=== PATIENT | female | born 1955 | race Caucasian/White ===

== ENCOUNTER → 2020-12-16 11:25 | Outpatient (CLI) | payer MEDICARE, SELFPAY ==
--- NOTE | ~2020-12-16 | XR_ITS ---
EXAMINATION: XR foot LT min 3V DATE: 12/16/2020 11:44 INDICATION: Left foot pain. TECHNIQUE: 4 views of left foot were obtained. COMPARISON: None. FINDINGS: Bone alignment is normal. No fracture. There is mild osteoarthritis of first metatarsophala ngeal joint and some the interphalangeal joints and midfoot joints. There is an enthesophyte at plant ar aspect of calcaneal tuberosity. IMPRESSION: 1. Mild polyarticular osteoarthritis. Reviewed, dictated and finalized at location A.
== END ==
PROVIDERS: PCP Family Medicine; Visit Provider Family Medicine
DX: M19.072 Primary osteoarthritis, left ankle and foot (principal)
CPT/HCPCS: 73630

== ENCOUNTER → 2021-04-24 11:28 | Outpatient (CLI) | payer MEDICARE, SELFPAY ==
--- NOTE | ~2021-04-24 | MM_ITS ---
EXAMINATION: MM screening rohan BI w priti HISTORY: Screening mammogram TECHNIQUE: Craniocaudal and mediolateral oblique 3-D tomosynthesis images were obtained and synthetic 2-D images were generated. CAD analysis was submitted and interpreted. COMPARISON: 07/01/2019, 04/08/2018, 08/01/2016 bilateral screening mammogram BREAST PARENCHYMAL COMPOSITION: The breasts are almost entirely fatty. FINDINGS: There is no evidence of suspicious mass, calcification, or architectural distortion to sugg est malignancy in either breast. There has been no suspicious interval change. There are scattered bilateral circumscribed low-density benign-appearing lesions, the largest a 4.8 x 8 mm circumscribed density in the lateral mid left breast. These are likely benign lymph nodes. IMPRESSION: 1. No mammographic evidence of malignancy. 2. Recommend routine screening mammography in one year. BI-RADS Category 2: Benign finding(s). Reviewed, dictated and finalized at location A. MOLDER
== END ==
PROVIDERS: PCP Family Medicine; Visit Provider Family Medicine
DX: Z12.31 Encounter for screening mammogram for malignant neoplasm of breast (principal)
CPT/HCPCS: 77063; 77067

== ENCOUNTER → 2022-03-02 10:58 | Outpatient (CLI) | payer MEDICARE, SELFPAY ==
--- NOTE | ~2022-03-02 | XR_ITS ---
EXAMINATION: XR hip RT min 3V w AP pelvis INDICATION: Right hip pain TECHNIQUE: AP view the pelvis and three views of the right hip are obtained. COMPARISON: None available FINDINGS: Bone alignment is normal. There is no fracture. There is mild osteoarthritis of the hips. P hleboliths are noted in the pelvis. IMPRESSION: 1. Mild osteoarthritis without acute osseous abnormality. Reviewed, dictated and finalized at location B.
== END ==
PROVIDERS: PCP Emergency Medicine; Visit Provider Emergency Medicine
DX: M16.11 Unilateral primary osteoarthritis, right hip (principal)
CPT/HCPCS: 73502

== ENCOUNTER 2022-07-19 10:36 | Outpatient (CLI) | payer MEDICARE, SELFPAY ==
[2022-07-19 19:36] LABS: Kit Draw Collected
== END 2022-07-19 10:37 | disposition home or self-care (01) ==
LOC: ANHGOSHLAB 10:38
PROVIDERS: PCP Family Medicine; Visit Provider Family Medicine
DX: M25.50 Pain in unspecified joint (principal); E66.9 Obesity, unspecified; E78.2 Mixed hyperlipidemia; I10 Essential (primary) hypertension
CPT/HCPCS: 36415

== ENCOUNTER → 2022-07-19 10:57 | Outpatient (CLI) | payer MEDICARE, SELFPAY ==
--- NOTE | ~2022-07-19 | XR_ITS ---
Bilateral Hands Technique: Bilateral PA, oblique, and lateral views, and ball-catcher's view were obtained. Clinical History: Joint pain Findings: No acute fracture or dislocation is seen. Osseous alignment is anatomic. Mild degenerative change of the right first interphalangeal joint and right second DIP joint is present. There is mild degenerative change of the interphalangeal joint of the left thumb, as well as of the left second and third DIP joints. Soft tissues are unremarkable. Impression: Mild degenerative changes, as detailed above. Reviewed, dictated and finalized at location M. LER HELPER Impression: Mild degenerative changes, as detailed above.
== END ==
PROVIDERS: PCP Family Medicine; Visit Provider Family Medicine
DX: M25.50 Pain in unspecified joint (principal)
CPT/HCPCS: 73130

== ENCOUNTER → 2022-07-20 16:00 | Outpatient (CLI) | payer MEDICARE, SELFPAY ==
--- NOTE | ~2022-07-20 | XR_ITS ---
EXAMINATION: XR shoulder LT min 2V DATE: 07/20/2022 16:12 INDICATION: Left shoulder injury and pain with raising the arm post injury 2 years prior TECHNIQUE: AP internally and externally rotated, AP oblique externally rotated and transscapular Y vi ews of the left shoulder were obtained. COMPARISON: None FINDINGS: Mild cervicothoracic levocurvature with moderate to severe cervical and and mild to moderate thoracic spondylosis. Normal alignment at the left shoulder. No fracture. Mild bilateral left glenohumeral a nd acromioclavicular osteoarthritis. Tiny focus of calcific density along the posterior facet of the greater tuberosity consistent with minimal rotator cuff calcific tendinitis involving of the teres mi nor posterior most infraspinatus tendon. Visualized portions of the left lung are clear. Suture line at the right apex. IMPRESSION: 1. Mild left glenohumeral and acromioclavicular osteoarthritis. 2. Minimal posterior rotator cuff calcific tendinitis. Reviewed, dictated and finalized at location A. RVISOR CORE DRILLING
== END ==
PROVIDERS: PCP Family Medicine; Visit Provider Physician Assistant
DX: M19.012 Primary osteoarthritis, left shoulder (principal)
CPT/HCPCS: 73030

== ENCOUNTER → 2022-07-31 13:19 | Outpatient (CLI) | payer MEDICARE, SELFPAY ==
--- NOTE | ~2022-07-31 | MM_ITS ---
EXAMINATION: MM screening rohan BI w priti HISTORY: Screening TECHNIQUE: Craniocaudal and mediolateral oblique 3-D tomosynthesis images were obtained and synthetic 2-D images were generated. CAD analysis was submitted and interpreted. COMPARISON: Comparison to multiple prior studies sequentially, with oldest reviewed study dated 04/17. BREAST PARENCHYMAL COMPOSITION: Breast composed of scattered areas of fibroglandular density FINDINGS: There is no evidence of suspicious mass, calcification, or architectural distortion to sugg est malignancy in either breast. There has been no suspicious interval change. IMPRESSION: 1. No mammographic evidence of malignancy. 2. Recommend routine screening mammography in one year. BI-RADS Category 1: Negative Reviewed, dictated and finalized at location A. ERN WHEEL MAKER
== END ==
PROVIDERS: PCP Emergency Medicine; Visit Provider Emergency Medicine
DX: Z12.31 Encounter for screening mammogram for malignant neoplasm of breast (principal)
CPT/HCPCS: 77063; 77067

== ENCOUNTER 2022-09-21 09:46 | Outpatient (CLI) | payer MEDICARE, SELFPAY ==
--- NOTE | ~2022-09-21 | MR_ITS ---
EXAMINATION: MR brain/brain stem wo/w con DATE: 09/21/2022 10:37 INDICATION: Dizziness. TECHNIQUE: Magnetic resonance imaging (MRI) of the brain and brainstem was performed without and with 17 mL MultiHance intravenous contrast. COMPARISON: None. FINDINGS: There is a small acute infarct in right cerebellum. There are scattered areas of nonspecifi c increased T2-weighted signal intensity in the cerebral white matter and ana lilia. There is no intracran ial hemorrhage or abnormal mass lesion. The ventricles are normal in size. There is mucosal thickenin g in the paranasal sinuses. The orbits are normal. The mastoid air cells are normal. IMPRESSION: 1. 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 2. Moderate nonspecific cerebral white matter disease and pontine disease, which likely represents ch ronic small vessel ischemic disease. Reviewed, dictated and finalized at location A. IMPRESSION: 1. 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 2. Moderate nonspecific cerebral white matter disease and pontine disease, whic h likely represents chronic small vessel ischemic disease.
== END 2022-09-21 09:47 | disposition home or self-care (01) ==
PROVIDERS: PCP Family Medicine; Visit Provider Nurse Practitioner Family
DX: H53.9 Unspecified visual disturbance (principal); R42 Dizziness and giddiness; R93.0 Abnormal findings on diagnostic imaging of skull and head, not elsewhere classified
CPT/HCPCS: 70553; A9577

== ENCOUNTER 2022-09-25 09:00 | Outpatient (RCR) | payer MEDICARE, SELFPAY ==
--- NOTE | 2022-08-14 09:00 | PTOPEVAL1 ---
Assessment and note entered by Lotus Escalante, PT, DPT Evaluation Information Assessment Status Evaluation Diagnosis L shoulder Onset 2 years Subjective Information Pt states 2 years ago she was reaching for something in her closet when she flet her shoulder pop. Soon after this she states her muscle got big and swollen , it has slowly decreased since then. She states she is unsure about therapy cause she does not like to/want to move her shoulder much out of fear of making it worse. She states any time she lifts something it is sore for weeks afterwards. She states she a long time she did not have any pain, about 6 months ago she was lifting a case of water and aggravated it again. She reports 0/10 at rest, and 4/10 with movement, but can make it a 10/10. Reported Pain Level Pain Score 0: Self Report Assessment PT Clinical Summary Enriqueta Brambila presents to therapy today for her initial evaluation with a diagnosis of L shoulder tendinitis. Today she demonstrates active ROM that is equal bilaterally in her shoulders and elbows. She reports mild pain in her biceps muscle belly with both active ROM and resisted motions. She demonstrates decreased L shoulder strength compared to her uninvolved side. Skilled physical therapy services are indicated to address the deficits noted above, to manage pain, and to improve functional mobility. Plan of Care Interventions Electrical Stimulation,Hot Pack/Cold Pack,Manual Therapy,Neuro Re-education,Patient/Caregiver Educati,Therapeutic Activities,Therapeutic Exercise PT Services Indicated Yes Treatment Frequency and 1x/wk for 6 wks Duration These treatments will address the objective and functional deficits as defined above. The patient will be advanced safely and appropriately in order for the patient to progress towards his/her prior level of function. Additional exercises will be introduced and as well as a comprehensive home exercise program upon discharge, if needed, ?to ensure carryover of functional gains achieved in the clinic. This treatment plan has been reviewed and agreement upon by the patient.
--- NOTE | 2022-09-25 09:39 | PTOPDC ---
Assessment and note entered by Lotus Escalante, PT, DPT Evaluation Information Assessment Status Progress Diagnosis L shoulder Onset 2 years Subjective Information Pt states overall her motion is much better, she states she only has pain when reaching over her head as high as she can. She states she will has some clicking and popping in the shoulder but it is not painful. She states she still gets pain when trying to lift something heavy, like a case of water. Pt reports 95% improvement in overall symptoms. Reported Pain Level Pain Score 0: Self Report Assessment PT Clinical Summary Enriqueta presents to therapy today for her progress report following 6 visits of skilled therapy to treat her L shoulder pain. Today she reports 95% improvement in her overall pain. She demonstrates improved scapulohumeral rhythm today. She has met a majority of her goals and has progressed well towards the others. She will be discharged at this time to continue her HEP upon discharge. Plan of Care PT Services Indicated No
== END 2022-09-25 11:18 | disposition home or self-care (01) ==
LOC: ANHGOSHPT 09:00
PROVIDERS: PCP Emergency Medicine; Visit Provider Family Medicine
DX: M75.22 Bicipital tendinitis, left shoulder (principal)
CPT/HCPCS: 97110; 97112; 97140; 97161; 97530

== ENCOUNTER 2023-03-27 08:52 | Outpatient (CLI) | payer MEDICARE, SELFPAY ==
--- NOTE | 2023-03-27 11:00 | NEURO_ITS ---
Impression: # Complains of numbness of hands. # Mild Carpal Tunnel Syndrome, left more than right. # No ulnar neuropathy. # Normal needle/EMG. Nerve Conduction Studies Anti Sensory Summary Table Stim Site NR Peak (ms) P-T Amp (?V) Site1 Site2 Delta-P (ms) Dist (cm) Yaniv (m/s) Left Median Anti Sensory (2-3nd Digit) Wrist 4.2 38.2 Wrist 2-3nd Digit 4.2 14.0 33 Wrist 4.3 32.7 Wrist 2-3nd Digit 4.2 14.0 33 Right Median Anti Sensory (2-3nd Digit) Wrist 3.1 22.7 Wrist 2-3nd Digit 3.1 14.0 45 Wrist 3.2 40.3 Wrist 2-3nd Digit 3.1 14.0 45 Left Radial Anti Sensory (Base 1st Digit) Wrist 2.0 28.1 Wrist Base 1st Digit 2.0 0.0 Right Radial Anti Sensory (Base 1st Digit) Wrist 2.3 24.7 Wrist Base 1st Digit 2.3 0.0 Left Ulnar Anti Sensory (5th Digit) Wrist 2.7 59.4 Wrist 5th Digit 2.7 14.0 52 Right Ulnar Anti Sensory (5th Digit) Wrist 2.8 82.7 Wrist 5th Digit 2.8 14.0 50 Motor Summary Table Stim Site NR Onset (ms) O-P Amp (mV) Site1 Site2 Delta-0 (ms) Dist (cm) Yaniv (m/s) Left Median Motor (Abd Poll Brev) Wrist 4.4 10.5 Elbow Wrist 4.5 28.0 62 Elbow 8.9 10.0 Right Median Motor (Abd Poll Brev) Wrist 4.0 4.3 Elbow Wrist 4.6 26.0 57 Elbow 8.6 2.4 Left Ulnar Motor (Abd Dig Minimi) Wrist 3.0 7.6 A Elbow Wrist 4.8 29.0 60 A Elbow 7.8 6.6 Right Ulnar Motor (Abd Dig Minimi) Wrist 2.8 8.6 A Elbow Wrist 4.7 27.0 57 A Elbow 7.5 8.3 F Wave Studies NR F-Lat (ms) L-R F-Lat (ms) Left Median (Mrkrs) (Abd Poll Brev) 26.96 1.29 Right Median (Mrkrs) (Abd Poll Brev) 25.67 1.29 Left Ulnar (Mrkrs) (Abd Dig Min) 27.04 1.23 Right Ulnar (Mrkrs) (Abd Dig Min) 25.81 1.23 EMG Side Muscle Nerve Root Ins Act Fibs Amp Dur Recrt Comment Right 1stDorInt Ulnar C8-T1 Nml Nml Nml Nml Nml Right Ext Indicis Radial (Post Int) C7-8 Nml Nml Nml Nml Nml Right Ext Digitorum Radial (Post Int) C7-8 Nml Nml Nml Nml Nml Right BrachioRad Radial C5-6 Nml Nml Nml Nml Nml Right PronatorTeres Median C6-7 Nml Nml Nml Nml Nml Right Abd Poll Brev Median C8-T1 Nml Nml Nml Nml Nml Left 1stDorInt Ulnar C8-T1 Nml Nml Nml Nml Nml Left Ext Indicis Radial (Post Int) C7-8 Nml Nml Nml Nml Nml Left Ext Digitorum Radial (Post Int) C7-8 Nml Nml Nml Nml Nml Left BrachioRad Radial C5-6 Nml Nml Nml Nml Nml Left PronatorTeres Median C6-7 Nml Nml Nml Nml Nml Left Abd Poll Brev Median C8-T1 Nml Nml Nml Nml Nml MTDD
== END 2023-03-27 08:53 | disposition home or self-care (01) ==
PROVIDERS: PCP Family Medicine; Visit Provider Family Medicine
DX: R20.0 Anesthesia of skin (principal); G56.03 Carpal tunnel syndrome, bilateral upper limbs
CPT/HCPCS: 95886; 95911

== ENCOUNTER 2023-09-11 13:26 | Outpatient (CLI) | payer MEDICARE, SELFPAY ==
--- NOTE | ~2023-09-11 | MM_ITS ---
EXAMINATION: MM screening rohan BI w priti HISTORY: Screening mammogram TECHNIQUE: Craniocaudal and mediolateral oblique 3-D tomosynthesis images were obtained and synthetic 2-D images were generated. CAD analysis was submitted and interpreted. COMPARISON: July 31, 2022, April 24, 2021 bilateral screening mammogram examinations BREAST PARENCHYMAL COMPOSITION: The breasts are almost entirely fatty. FINDINGS: There is no evidence of suspicious mass, calcification, or architectural distortion to sugg est malignancy in either breast. There has been no suspicious interval change. IMPRESSION: 1. No mammographic evidence of malignancy. 2. Recommend routine screening mammography in one year. BI-RADS Category 1: Negative Reviewed, dictated and finalized at location A.
== END 2023-09-11 13:27 | disposition home or self-care (01) ==
LOC: CHSIMG 13:29
PROVIDERS: PCP Family Medicine; Visit Provider Family Medicine
DX: Z12.31 Encounter for screening mammogram for malignant neoplasm of breast (principal)
CPT/HCPCS: 77063; 77067

== ENCOUNTER 2023-10-17 13:41 | Outpatient (CLI) | payer MEDICARE, SELFPAY ==
--- NOTE | ~2023-10-17 | CT_ITS ---
EXAMINATION:CT diagnostic chest wo con DATE: 10/17/2023 13:56 INDICATION: Right-sided pleurodynia. TECHNIQUE: Computed tomography (CT) of the chest was performed without intravenous contrast. Automate d exposure control and iterative reconstruction technique were employed. The dose-length product (DLP ) was 542.92 mGy-cm. COMPARISON: None. FINDINGS: There is mild emphysema. There is mild scarring at the lung apices. There is peripheral sep anton thickening in the lungs with a lower lung predominance. There are few nodules at the fissures mary lou suring up to 5 mm, likely benign. There is a thoracotomy defect of right sixth rib. There are staple lines in right lung upper lobe. No pleural effusion. The heart size is normal. There are coronary art paige calcifications. No pericardial effusion. There is mild thoracic spondylosis. IMPRESSION: 1. Mild emphysema and mild chronic interstitial lung disease. Reviewed, dictated and finalized at location E.
== END 2023-10-17 13:42 ==
LOC: MICIMG 13:43
PROVIDERS: PCP Nurse Practitioner Family; Visit Provider Nurse Practitioner Family
DX: R07.81 Pleurodynia (principal); J43.9 Emphysema, unspecified
CPT/HCPCS: 71250

== ENCOUNTER 2023-11-30 09:54 | Emergency (ER) | payer MEDICARE, SELFPAY ==
[2023-11-30 10:10] VITALS: BP 148/89; PULSE 64; RESP 16; TEMP 36.8; O2SAT 98
--- NOTE | 2023-11-30 10:10 | ED.URI ---
HPI - URI/Sore Throat General Chief Complaint: Upper Respiratory Infection Stated Complaint: cough Source: patient and RN notes reviewed Mode of arrival: ambulatory Limitations: no limitations History of Present Illness HPI Narrative: 68-year-old female presented for complaint of nasal congestion and fever. Onset 2 days. Temperature up to 101.5. Tested negative for COVID at the onset. Denies shortness of breath, wheezing, nausea, vomiting, or lethargy. Took Tylenol and Delsym. MD elicited complaint: cough Related Data Home Medications Medication Instructions Recorded Confirmed omeprazole 20 mg capsule,delayed 20 mg PO DAILY 10/10/23 11/30/23 release Allergies Allergy/AdvReac Type Severity Reaction Status Date / Time benzocaine Allergy Mild SWOLLEN Verified 11/30/23 10:05 LIPS Review of Systems Review of Systems: CONSTITUTIONAL: Endorses malaise, fever EYES: Denies visual changes, redness, or discharge ENT: Reports rhinorrhea, congestion, denies sinus pain, otalgia, sore throat CARDIOVASCULAR: Denies chest pain, palpitations, edema RESPIRATORY: Reports cough, post nasal drainage. Denies dyspnea GASTROINTESTINAL: Denies abdominal pain, nausea, vomiting SKIN: Denies rash or itching MUSCULOSKELETAL: Denies myalgia NEUROLOGIC: endorses headache PMFSH Past Medical History Medical History Adult BMI 33.0-33.9 kg/sq m Bilateral leg cramps BMI 34.0-34.9,adult BMI 35.0-35.9,adult Brain ischemia Chronic anxiety Collapsed lung Dizziness Does use eyeglasses [place] Hip pain, right Hypoglycemia Numbness of right hand Pap smear for cervical cancer screening (~12/23/12) Pneumothorax (~1982) Prediabetes Restless leg syndrome Shoulder pain, left Trigger finger (acquired) Trochanteric bursitis of both hips Uses contact lenses Vision changes Vision changes Surgical History Surgical History H/O eye surgery History of colonoscopy (~09/11/05) History of sinus surgery (~2017) Family History Family History Mother Family history of alcoholism Father Family history of emphysema Sibling Hyperlipidemia Other Hypertension Social History Social History Smoking packs per day: 1 Smoking cigarettes per day: 20.0 Years smoked: 20 Smoking pack-years: 20.00 Smoking status: Former smoker Tobacco type: cigarettes and e-cigarettes/vaping Second hand tobacco smoke exposure: No Alcohol intake: current Substance use: never Substance use type: does not use Lack of Transportation: No Lack of Food: Never True Current Housing: I Have Housing Concerned About Future Housing: Decline to Answer Difficulty Paying Gas/Electric Bills: Decline to Answer Currently Unemployed: Decline to Answer Education: High School Diploma/GED Difficulty w/ Childcare or Family Care: No Living arrangements: with family Occupation/Education: retired 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 TM pearly herring with dull light reflex bilaterally; no tragal tenderness. Oropharynx not erythematous without lesions or exudate, no drooling, no hoarseness, no trismus, uvula midline. No tripod positioning, muffled voice, soft palate or pharyngeal wall bulging NECK: Supple. No lymphadenopathy CHEST: Clear to auscultation, breath sounds equal. No wheezing, rhonchi, rales, or stridor. No respiratory distress, speaks in full sentences. HEART: Regular rate and rhythm. SKIN: Warm, dry, no rash. NEURO: Alert and oriented x3. Course Course Emergency Course: Patient is aware of
== END 2023-11-30 10:35 | disposition home or self-care (01) ==
PROVIDERS: Emergency Provider Nurse Practitioner Family; PCP Nurse Practitioner Family
DX: B34.9 Viral infection, unspecified (principal); Z20.822 Contact with and (suspected) exposure to COVID-19; Z87.891 Personal history of nicotine dependence; R73.03 Prediabetes; G25.81 Restless legs syndrome
CPT/HCPCS: 87426; 87804; 99213; G0463

== ENCOUNTER 2023-12-02 11:32 | Outpatient (CLI) | payer MEDICARE, SELFPAY ==
--- NOTE | ~2023-12-02 | XR_ITS ---
EXAMINATION: XR chest 2V Exam Date/Time: 12/02/2023 11:36 CDT HISTORY: R05.3 - Chronic cough Comparison: CT chest 10/17/2023. RESULT: Lines, tubes, and devices: Staple line in the right apex. Lungs and pleura: Patchy peripheral subsegmental airspace disease in the right lower lung in an area of chronic reticulation. Cardiomediastinal silhouette: Stable. Other: No acute osseous or upper abdominal finding. IMPRESSION: Focal subsegmental airspace disease in the right peripheral lower lung may represent atelectasis or i nfection. Recommend short-term radiographic follow-up to ensure resolution. Reviewed, dictated and finalized at location K. IMPRESSION: Focal subsegmental airspace disease in the right peripheral lower lung may repr esent atelectasis or infection. Recommend short-term radiographic follow-up to ensure resolution.
== END 2023-12-02 11:33 ==
LOC: MICIMG 11:35
PROVIDERS: PCP Family Medicine; Visit Provider Physician Assistant Medical
DX: R05.3 Chronic cough (principal)
CPT/HCPCS: 71046

== ENCOUNTER 2023-12-23 09:27 | Outpatient (CLI) | payer MEDICARE, SELFPAY ==
--- NOTE | ~2023-12-23 | XR_ITS ---
Clinical Indication: Abnormal findings on diagnostic imaging PA and lateral views of the chest: Comparison: 12/02/2023 Findings: Probable minimal right pleural effusion and hazy right basilar airspace disease are similar to prior exam. Left lung remains clear.. Cardiomediastinal silhouette is within normal limits. Bone s and soft tissues are unremarkable. Impression: Stable hazy right basilar airspace disease and probable minimal right pleural effusion. Reviewed, dictated and finalized at location M. Impression: Stable hazy right basilar airspace disease and probable minimal right pleural e ffusion.
== END 2023-12-23 09:28 ==
LOC: MICIMG 09:28
PROVIDERS: PCP Family Medicine; Visit Provider Physician Assistant Medical
DX: R93.89 Abnormal findings on diagnostic imaging of other specified body structures (principal)
CPT/HCPCS: 71046

== ENCOUNTER 2024-01-10 08:01 | Outpatient (CLI) | payer MEDICARE, SELFPAY ==
--- NOTE | ~2024-01-10 | CT_ITS ---
EXAMINATION: CT diagnostic chest w con DATE: 01/10/2024 08:41 INDICATION: Pneumonia TECHNIQUE: Computed tomography (CT) of the chest was performed with 75 CC Omnipaque 350 intravenous c ontrast. Automated exposure control and iterative reconstruction technique were employed. Exam dose: 386.28 mGy-cm total exam DLP. COMPARISON: 12/23/2023 2 view chest 10/17/2023 CT chest FINDINGS: Status post right thoracotomy. Radiopaque sutures are noted in the posterior right apical a millie. Normal heart size. Coronary artery calcification. There is aortic and great vessel calcification. No thoracic aortic aneurysm or dissection. No pericardial or pleural effusion. 8 x 11.6 mm mediastinal lymph node anterior to the left mainstem bronchus. There is mild right hilar lymph node prominence. Small probable granuloma, posterolateral middle lobe (series 4 image 67) Probable fissural nodes at the fissure. Prominent interlobular septal soft tissue thickening becoming is noted in the peripheral anterior and lateral middle and right lower lobes and to a lesser extent posterior peripheral right lower lobe.. Normal morphology of the adrenal glands. Pinpoint nonobstructing right renal calculus. No suspicious osteolytic or osteoblastic lesions. IMPRESSION: Prominent interlobular septal soft tissue thickening and honeycombing the anterior and l ateral aspect of the middle and right lower lobes and to a lesser extent posterior peripheral right l ower lobe Status post right thoracotomy and partial right pneumonectomy Reviewed, dictated and finalized at Location A. Reviewed, dictated and finalized at location J. IMPRESSION: Prominent interlobular septal soft tissue thickening and honeycomb ing the anterior and lateral aspect of the middle and right lower lobes and to a lesser extent posterior peripheral right lower lobe Status post right thoracotomy and partial right pneumonectomy
[2024-01-10 08:29] LABS: Estimated Glomerular Filt Rate > 60
== END 2024-01-10 08:02 | disposition home or self-care (01) ==
PROVIDERS: PCP Family Medicine; Visit Provider Physician Assistant Medical
DX: J18.9 Pneumonia, unspecified organism (principal); J43.9 Emphysema, unspecified; R05.3 Chronic cough; Z90.2 Acquired absence of lung [part of]; R93.89 Abnormal findings on diagnostic imaging of other specified body structures
CPT/HCPCS: 71260; Q9967

== ENCOUNTER 2024-05-20 13:01 | Outpatient (CLI) | payer MEDICARE, SELFPAY ==
--- NOTE | 2024-05-25 20:53 | WPDPFTINT ---
PFT Procedure Performed PFT Procedure Performed Spirometry with Pre/Post Bronchodilator Plethysmography (Lung Vol) Diffusing Cap (DLCO) Flow Vol Loop PFT Interpretation DOS: 05/20/2024 REQUESTING: Elizabeth Serra MD REASON FOR TESTING: ILD PULMONARY FUNCTION TESTS Results are reliable and reproducible. Repeatability of spirometry FEV1 maneuver pre and post bronchodilator is Grade A. Spirometry: The pre-bronchodilator FEV1 is 2.18, 115%. The pre-bronchodilator FVC is 3.13 L, 129%. The FEV1/FVC ratio is70%. After bronchodilator, the FEV1 is 2.15 L, 114%, -1%. The post-bronchodilator FVC is 3.03 L, 125%, -3%. The FEV1/FVC ratio is 71%. Lung volumes: The total lung capacity is 4.33 L, 97%, normal. The residual volume is 1.20 L, 58%. The RV/TLC is 28%, decreased. Airway resistance is increased. Diffusion: DLCO is 11.6, 57%, decreased. The DLCO/VA is 3.12, 73%, normal. Flow volume loop: The flow volume loop normal. IMPRESSION: Normal spirometry without response to bronchodilator, normal lung volumes, and mild diffusion impairment which normalizes for alveolar volume. No prior studies to compare. Elizabeth Serra MD
== END 2024-05-20 13:02 | disposition home or self-care (01) ==
LOC: ANHPFT 13:02
PROVIDERS: PCP Family Medicine; Visit Provider Internal Medicine Critical Care Medicine
DX: J84.9 Interstitial pulmonary disease, unspecified (principal)
CPT/HCPCS: 94060; 94618; 94726; 94729

== ENCOUNTER 2024-09-14 07:50 | Outpatient (CLI) | payer MEDICARE, SELFPAY ==
--- NOTE | ~2024-09-14 | MR_ITS ---
EXAMINATION: MR brain/brain stem wo con DATE: 09/14/2024 08:23 INDICATION: Demyelinating disease of central nervous system. TECHNIQUE: Magnetic resonance imaging (MRI) of the brain and brainstem was performed without intraven ous contrast. COMPARISON: Brain MRI 09/21/2022 FINDINGS: There are scattered areas of nonspecific increased T2-weighted signal intensity in the cere bral white matter. There is no intracranial hemorrhage, acute infarction, or abnormal intracranial ma ss lesion. The ventricles are normal in size. The orbits are normal. There is mucosal thickening in t he paranasal sinuses. The mastoid air cells are normal. IMPRESSION: 1. Stable moderate nonspecific cerebral white matter disease, which likely represents chronic small v essel ischemic disease. Reviewed, dictated and finalized at location A. IMPRESSION: 1. Stable moderate nonspecific cerebral white matter disease, which likely repr esents chronic small vessel ischemic disease.
== END 2024-09-14 07:51 | disposition home or self-care (01) ==
LOC: MICIMG 07:50
PROVIDERS: PCP Family Medicine; Visit Provider Family Medicine
DX: G37.9 Demyelinating disease of central nervous system, unspecified (principal); I67.82 Cerebral ischemia; R90.82 White matter disease, unspecified
CPT/HCPCS: 70551

== ENCOUNTER 2025-01-06 10:19 | Outpatient (CLI) | payer MEDICARE, SELFPAY ==
--- NOTE | ~2025-01-06 | MM_ITS ---
EXAMINATION: MM screening rohan BI w priti HISTORY: Screening TECHNIQUE: Craniocaudal and mediolateral oblique 3-D tomosynthesis images were obtained and synthetic 2-D images were generated. CAD analysis was submitted and interpreted. COMPARISON: Comparison to multiple prior studies sequentially, with oldest reviewed study dated 08/01. BREAST PARENCHYMAL COMPOSITION: The breasts are almost entirely fatty. FINDINGS: There is no evidence of suspicious mass, calcification, or architectural distortion to sug gest malignancy in either breast. Bilateral benign-appearing circumscribed masses reidentified unchan ged. IMPRESSION: 1. No mammographic evidence of malignancy. 2. Recommend routine screening mammography in one year. BI-RADS Category 2: Benign finding(s). Reviewed, dictated and finalized at location B.
--- OUTSIDE RECORDS SUMMARY | 2025-01-06 10:25 | XMS_ITS | Referral Summary ---
Author Organization [facility] Address [address] [place] [id number] Care Team Providers Care Locomotive Switch Operator Name Role Phone Curly Vanessa MD Primary Care Provider [phone] Allergies No known active allergies Medications albuterol HFA (PROVENTIL HFA,VENTOLIN HFA,PROAIR HFA) 90 mcg/actuation inhaler Inhale 1 puff every 4 (four) hours as needed for shortness of breath 0 Active ALPRAZolam (XANAX) 0.5 mg tabletIndicatio ns:anxiety Take 1 tablet (0.5 mg total) by mouth 3 (three) times a day as needed 1 Active valACYclovir (VALTREX) 1 gram tabletIndicatio ns:Skin/Soft Tissue Infection,fever blister Take 1 tablet (1,000 mg total) by mouth as needed 1 Active fluorouraciL (EFUDEX) 5 % creamIndication s:superficial basal cell carcinoma Apply 1 application topically as needed 1 Active olmesartan (BENICAR) 20 mg tabletIndicatio ns:hypertension Take 1 tablet (20 mg total) by mouth operations director before breakfast 3 Active azelastine (ASTELIN) 137 mcg (0.1 %) nasal spray Administer 1 spray into each nostril 2 (two) times a day Use in each nostril as directed 30 mL 6 3 Active donepeziL (ARICEPT) 5 mg tablet Take 1 tablet (5 mg total) by mouth daily 3 Active fluticasone propionate 93 mcg/actuation aerosol breath activated Administer 1 spray into affected nostril(s) 2 (two) times a day 16 mL 6 4 Active benzonatate (TESSALON) 200 mg capsule TAKE 1 CAPSULE BY MOUTH THREE TIMES DAILY NEEDED FOR COUGH 4 Active rOPINIRole (REQUIP) 1 mg tablet Take 1 tablet (1 mg total) by mouth 2 (two) times a day 4 Active Wegovy 0.25 mg/0.5 mL auto-injector 4 Active Wegovy 0.5 mg/0.5 mL auto-injector INJECT 0.5 MG UNDER THE SKIN ONCE WEEKLY 4 Active ezetimibe (ZETIA) 10 mg tablet Take 1 tablet (10 mg total) by mouth daily 4 Active Active Problems Problem Noted Date Diagnosed Date Acute conjunctivitis of left eye 08/15/2023 Assessment & Plan (08/15/2023 11:41 AM BRAKE LINING FINISHER): Most likely allergic, lotemax BID left eye (OS) x 1 week Fu PRN Benign paroxysmal positional vertigo 03/25/2023 Left epiphora 02/14/2023 Assessment & Plan (02/14/2023 3:32 PM CDT): Dr Mcguire next available Terrien marginal degeneration, 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 Assessment & Plan (12/25/2022 11:10 AM CDT): stable Assessment & Plan (11/13/2022 9:19 AM CDT): Stable OU Assessment & Plan (08/28/2022 9:50 AM CDT): Mild limbal thinning OU No redness noted Baseline ed last visit Monitor for now Assessment & Plan (06/05/2022 10:58 AM BRAKE LINING FINISHER): Mild limbal thinning OU No redness noted Baseline ed today Monitor for now 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 D/c TD OS Increase PF OS 6x/day LTX ointment QHS OS until out RTC 1 month Assessment & Plan (10/09/2022 7:53 AM CDT): 1 day postop Start TD OS QID alt w/ PF OS QID LTX ointment QHS OS RTC Fri am Assessment & Plan (08/28/2022 11:17 AM CDT): No change on CL holiday Previous Confocal OD 1138 OS 1160 (no guttata) Given persistence recommend removal and histopathologic exam VA stable, but having difficulty with glasses. Recent dizziness pt thinks is due to glasses - recheck MRx locally REC Superficial keratectomy Risks, benefits, and alternatives of surgery discussed in detail with patient including but not limited to infection, bleeding, persistent inflammation, pain, diplopia, ptosis, need for further visits and surgeries, need for spectacle or contact lens correction after surgery, possible loss of vision, possible loss of the eye, and risks of anesthesia. The patient understands these risks and wishes to proceed. 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 RTC 3mo Cough 09/11/2021 Chronic pansinusitis 07/09/2019 Overview (07/09/2019): Added automatically from request for surgery [id number] Nose polyp 07/09/2019 Overview (07/09/2019): Added automatically from request for surgery [id number] Deviated nasal septum 07/09/2019 Overview (07/09/2019): Added automatically from request for surgery [id number] Hypertrophy of nasal turbinates 07/09/2019 Overview (07/09/2019): Added automatically from request for surgery [id number] Multiple nasal polyps 04/08/2019 Chronic sinusitis 03/10/2019 Social History Tobacco Use Types Packs/Day Years Used Date Smoking Tobacco: Former Cigarettes 0.1 24 1 966 - 1989 Smokeless Tobacco: Never Tobacco Cessation:Counseling Given: Not Answered Comments:uses e cigs with nictone Alcohol Use Standard Drinks/Week Comments Yes 6 (1 standard drink = 0.6 oz pur e alcohol) AUDIT-C Answer Date Recorded Q1: How often do you have a drink containing alc ohol? 2-4 times a month 04/06/2024 Q2: How many drinks containi ng alcohol do you have on a typical day when you are drinking? 1 or 2 04/06/2024 Q3: How often do you have si x or more drinks on one occasion? Never 04/06/2024 Personal Safety Answer Date Recorded Have you ever been in or are you currently in a harmful physical or emotional relationship or is someone making you feel afraid or unsafe? Denies 10/08/2022 Comments No Sex and Gender Information Value Date Recorded Sex Assigned at Not on file Legal Sex Female 1:33 AM BRAKE LINING FINISHER Gender Identity Not on file Sexual Orientation Not on file Last Filed Vital Signs Vital Sign Reading Time Taken Comments Blood Pressure 121/82 10/08/2022 9:50 AM CDT Pulse 71 10/08/2022 9:50 AM CDT Temperature 36.5 C (97.7 F) 10/08/2022 9:35 AM CDT Respiratory Rate 17 10/08/2022 9:50 AM CDT Oxygen Saturation 97% 10/08/2022 9:50 AM CDT Inhaled Oxygen Concentration - - Weight 81.6 kg (180 lb) 09/12/2022 3:45 PM CDT Height 162.6 cm (5' 4) 09/12/2022 3:45 PM CDT Body Mass Index 30.9 09/12/2022 3:45 PM CDT Plan of Treatment Not on file Medical Devices Implanted Type Area Edger Operator Device Identifier Shelf Expiration Date Model / Serial / Lot [place] Right: Lung Insurance UHC MEDICARE ADVANTAGE UHC MEDICARE ADVANTAGE Care Teams Locomotive Switch Operator Relationship Specialty Start Date End Date Curly Vanessa MD PCP - General Family Medicine 10/09/22
--- OUTSIDE RECORDS SUMMARY | 2025-01-06 10:25 | XMS_ITS | Clinical Summary ---
Author Organization [facility] Address [address] [place] [id number] Care Team Providers Care Sales Performance Manager Name Role Phone Curly Vanessa MD Primary Care Provider [phone] Allergies No known active allergies Medications aspirin EC (ECOTRIN) 81 MG tablet Take 1 tablet (81 mg total) by mouth daily. Active ALPRAZolam (XANAX) 0.5 MG tablet TAKE 1 TABLET BY MOUTH TWICE DAILY NEEDED FOR SLEEP 2 Active rosuvastatin (CRESTOR) 40 MG tablet Take 1 tablet (40 mg total) by mouth daily. 3 Active olmesartan (BENICAR) 20 MG tablet Take 1 tablet (20 mg total) by mouth daily. Active azelastine (ASTELIN) 0.1 % nasal spray 1 spray by Nasal route 2 (two) times daily. 3 Active phentermine (ADIPEX-P) 37.5 MG capsule TAKE 1 CAPSULE BY MOUTH DAILY. MUST ADMINISTER 30 MINUTES BEFORE OR 1 TO 2 HOURS AFTER BREAKFAST 3 Active omeprazole EC 20 MG Tab EC tablet Take 1 tablet by mouth daily. 2 Active topiramate (TOPAMAX) 25 MG tablet Take 1 tablet (25 mg total) by mouth 2 (two) times daily. Active albuterol sulfate HFA 108 (90 Base) MCG/ACT inhaler INHALE 1 PUFF BY MOUTH EVERY 4 TO 6 HOURS NEEDED FOR SHORTNESS OF BREATH OR WHEEZING 3 Active latanoprost (XALATAN) 0.005 % ophthalmic solution 1 drop daily. 3 Active loteprednol (LOTEMAX) 0.5 % ophthalmic suspension 1 drop 3 (three) times daily. 3 Active loteprednol (LOTEMAX) 0.5 % ophthalmic ointment Apply 1 Application. to eye daily. 3 Active tobramycin-dexa methasone (TOBRADEX) ophthalmic solution 1 drop 4 (four) times daily. 3 Active donepezil (ARICEPT) 5 MG TabIndications: MCI (mild cognitive impairment) Take 1 tablet (5 mg total) by mouth nightly at bedtime. 30 tablet 11 3 Active Active Problems No known active problems Immunizations Immunization Administration Dates Next Due Influenza (Generic) 04/12/2021,03/22/2020,2018 Influenza Adult (Generic) 05/12/2022,03/18/2018 Shingrix 07/01/2020,05/02/2020 Tdap (Generic) 03/02/2022 Family History Medical History Relation Comments Lung Disease Father Relation Status Comments Father Mother Social History Tobacco Use Types Packs/Day Years Used Date Smoking Tobacco: Former Cigarettes 1.5 20 1 968 - 1988 Smokeless Tobacco: Never Tobacco Cessation:Counseling Given: No Alcohol Use Standard Drinks/Week Comments Yes 0 (1 standard drink = 0.6 oz pur e alcohol) daily PHQ-2 Answer Date Recorded Patient Health Questionnaire-2 Score 0 10/04/2022 Comments Unknown Sex and Gender Information Value Date Recorded Sex Assigned at Female 12/12/2022 9:42 AM CDT Legal Sex Female 11:30 AM CDT Gender Identity Female 12/12/2022 9:42 AM CDT Sexual Orientation Not on file Last Filed Vital Signs Vital Sign Reading Time Taken Comments Blood Pressure 136/82 12/31/2022 1:05 PM CDT Pulse 73 12/31/2022 1:05 PM CDT Temperature 36.2 C (97.1 F) 11/29/2022 9:26 AM CDT Respiratory Rate 17 11/29/2022 9:26 AM CDT Oxygen Saturation 92% 12/31/2022 1:05 PM CDT Inhaled Oxygen Concentration - - Weight 89.4 kg (197 lb) 12/31/2022 1:05 PM CDT Height 164.6 cm (5' 4.8) 12/12/2022 9:35 AM CDT Body Mass Index 32.99 12/12/2022 9:35 AM CDT Plan of Treatment Health Maintenance Due Date Last Done Comments Colorectal Cancer Screening Colonoscopy (10 Years) 1953 Hepatitis C 1971 Mammogram Screening 1993 Pneumococcal Vaccine: 50+ Years (1 of 1 - PCV) 2003 Annual Medicare Wellness Visit 2018 Dexa Scan (General) 2018 COVID-19 Vaccine (4 - 2023-2 5 season) 2024 03/11/2021, 08/09/2020, 07/19/2020 PHQ-2 (Physician [place]) 06/17/2024 RSV Immunization or 60+ Years (1 - 1-dose 75+ series) 2028 DTaP, Tdap and Td Vaccines ( 2 - Td or Tdap) 03/02/2032 03/02/2022 Zoster Vaccines Completed 07/01/2020, 05/02/2020 Meningococcal B Vaccine Aged Out No l onger eligible based on patient's age to complete this topic Meningococcal Vaccine Aged Out No jose chaparro eligible based on patient's age to complete this topic RSV Immunizations Under 20 Months Aged Out No longer eligible b ased on patient's age to complete this topic Insurance [facility] [place] [address] Care Teams Sales Performance Manager Relationship Specialty Start Date End Date Curly Vanessa MD [address] [address] PCP - General FAMILY PRACTICE 10/01/22
--- OUTSIDE RECORDS SUMMARY | 2025-01-06 10:25 | XMS_ITS | Clinical Summary ---
Author Organization [facility] Address [address] [place] [id number] Care Team Providers Care Technical Specialist Name Role Phone Curly Vanessa MD Primary Care Provider [phone] Allergies No known active allergies Medications albuterol [...] 1 tablet (20 mg total) by mouth rn clinical resource before breakfast 3 Active azelastine (ASTELIN) 137 [...] 08/15/2023 Assessment & Plan (08/15/2023 11:41 AM FLOWER MACHINE OPERATOR): Most likely allergic, lotemax BID left eye [...] now Assessment & Plan (06/05/2022 10:58 AM FLOWER MACHINE OPERATOR): Mild limbal thinning OU No redness noted Baseline ed today Monitor for now 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 RTC 3mo Cough 09/11/2021 Chronic pansinusitis 07/09/2019 Overview (07/09/2019): Added automatically from request for surgery [id number] Nose polyp 07/09/2019 Overview (07/09/2019): Added automatically from request for surgery [id number] Deviated nasal septum 07/09/2019 Overview (07/09/2019): Added automatically from request for surgery [id number] Hypertrophy of nasal turbinates 07/09/2019 Overview (07/09/2019): Added automatically from request for surgery [id number] Multiple nasal polyps 04/08/2019 Chronic sinusitis 03/10/2019 Surgical History Surgery Date Site/Laterality Comments NASAL POLYP SURGERY 06/17/2017 - 06/16/2018 LUNG SURGERY 06/17/1982 - 06/16/1983 for recurrent collapsed lung Medical History Medical History Date Comments Sinus infection Chronic sinusitis with recur rent bronchitis Hyperlipidemia Atelectasis Nicotine dependence Sore throat severe sore thro at immediately after sinus surgery Family History Medical History Relation Name Comments Asthma Father Asthma Mother Anesthesia problems Neg Hx Relation Name Status Comments Father Alive Mother Social History Tobacco Use Types Packs/Day Years Used Date Smoking Tobacco: Former Cigarettes 0.1 24 1 966 - 1990 Smokeless Tobacco: Never Tobacco Cessation:Counseling Given: Not [...] on file Legal Sex Female 1:33 AM FLOWER MACHINE OPERATOR Gender Identity Not on file Sexual Orientation Not on file Obstetrics History Last Filed Vital Signs Vital Sign Reading [...] 09/12/2022 3:45 PM CDT Plan of Treatment Health Maintenance Due Date Last Done Comments Breast Cancer Screening-Mammogram 1955 Colon Cancer Screening-Colonoscopy 1955 Depression Screening 1953 Hepatitis C Screening 1953 Osteoporosis Screening-Bone Density Scan 1953 Hepatitis B Screening 1971 Pneumococcal vaccine 65+ (1 of 1 - PCV) 2003 Well Visit 65+ 2018 Fall Risk Assessment 10/09/2023 10/08/2022 Influenza Vaccine (#1) 2025 2, 04/12/2021, 03/22/2020, Additional history exists DTaP/Tdap/Td Vaccine (2 - Td or Tdap) 03/02/2032 03/02/2022 Zoster Vaccine Completed 07/01/2020, 05/02/2020 Medical Devices Implanted Type Area Air/Ocean Export Clerk Device Identifier Shelf Expiration Date Model / Serial / Lot [place] Right: Lung Insurance [facility] MEDICARE ADVANTAGE UHC MEDICARE ADVANTAGE Care Teams Technical Specialist Relationship Specialty Start Date End Date Curly Vanessa MD PCP - General Family Medicine 10/09/22
== END 2025-01-06 10:20 | disposition home or self-care (01) ==
LOC: CHSIMG 10:20
PROVIDERS: PCP Family Medicine; Visit Provider Family Medicine
DX: Z12.31 Encounter for screening mammogram for malignant neoplasm of breast (principal)
CPT/HCPCS: 77063; 77067

== ENCOUNTER 2025-03-04 10:08 | Outpatient (CLI) | payer MEDICARE, SELFPAY ==
--- OUTSIDE RECORDS SUMMARY | 2025-03-04 10:45 | XMS_ITS | Clinical Summary ---
Author Organization [facility] Address [address] [place] [id number] Care Team Providers Care Kitchen Chef Name Role Phone Curly Vanessa MD Primary Care Provider [phone] Allergies No known active allergies Medications albuterol [...] 1 tablet (20 mg total) by mouth land surveying party chief before breakfast 3 Active azelastine (ASTELIN) 137 [...] 08/15/2023 Assessment & Plan (08/15/2023 11:41 AM MARINE ELECTRONICS REPAIRER): Most likely allergic, lotemax BID left eye [...] now Assessment & Plan (06/05/2022 10:58 AM MARINE ELECTRONICS REPAIRER): Mild limbal thinning OU No redness noted Baseline ed today Monitor for now 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 RTC 3mo Cough 09/11/2021 Chronic pansinusitis 07/09/2019 Overview (07/09/2019): Added automatically from request for surgery [id number] Nose polyp 07/09/2019 Overview (07/09/2019): Added automatically from request for surgery [id number] Deviated nasal septum 07/09/2019 Overview (07/09/2019): Added automatically from request for surgery [id number] Hypertrophy of nasal turbinates 07/09/2019 Overview (07/09/2019): Added automatically from request for surgery [id number] Multiple nasal polyps 04/08/2019 Chronic sinusitis 03/10/2019 Encounters Date Type Department Care Team Description 02/24/2025 3:30 PM CDT Office Visit [facility] Medicine Ophthalmology [address] [place] [address] Health [address] [place] [address] Lashawn Douglas MD 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 (10/08/22) (Primary Dx); Terrien marginal degeneration, bilateral from Last 3 Months Surgical History Surgery Date Site/Laterality Comments NASAL [...] on file Legal Sex Female 1:33 AM MARINE ELECTRONICS REPAIRER Gender Identity Not on file Sexual Orientation [...] Hepatitis B Screening 1971 Pneumococcal vaccine 65+ (2 of 2 - PCV) 04/08/2004 04/08/2003 Well Visit 65+ 2018 Fall Risk Assessment 10/09/2023 10/08/2022 Influenza Vaccine (#1) 2025 , 04/12/2021, 03/22/2020, Additional history exists DTaP/Tdap/Td Vaccine (3 - Td or Tdap) 03/02/2032 03/02/2022, 09/18/2011, 10/26/2002 Zoster Vaccine Completed 07/01/2020, 04/17, 04/17/2014 Medical Devices Implanted Type Area Distribution Collection Operator Device Identifier Shelf Expiration Date Model / Serial / Lot [place] Right: Lung Insurance UHC MEDICARE ADVANTAGE [place] [id number] UHC MEDICARE ADVANTAGE Care Teams Kitchen Chef Relationship Specialty Start Date End Date Curly Vanessa MD PCP - General Family Medicine 10/09/22
--- OUTSIDE RECORDS SUMMARY | 2025-03-04 10:45 | XMS_ITS | Clinical Summary ---
Author Organization [facility] Address [address] [place] [id number] Care Team Providers Care Certified Phlebotomist Name Role Phone Curly Vanessa MD Primary Care Provider [phone] Allergies No known active allergies Medications aspirin [...] Wellness Visit 2018 Dexa Scan (General) 2018 PHQ-2 (Physician [place]) 06/17/2024 COVID-19 Vaccine (4 - 2024-2 6 season) 2025 03/11/2021, 08/09/2020, 07/19/2020 RSV Immunization or 60+ Years (1 - [...] patient's age to complete this topic Insurance [facility] Care Teams Certified Phlebotomist Relationship Specialty Start Date End Date Curly Vanessa MD [address] [address] PCP - General FAMILY PRACTICE 10/01/22
--- NOTE | 2025-03-04 13:23 | WPDSIXMINUTE ---
Six Minute Walk Procedure Procedure Performed Pulmonary Stress Test (6 min walk) Six Minute Walk Six Minute Walk: This is a 6 minute walk test. The test was performed and interpreted in accordance with the 2014 ERS/ATS task force guidelines. Findings: The patient's resting room air oxygen saturation measured by pulse oximetry was 97%, the heart rate was 80 bpm, and the modified Jyoti dyspnea score was 0. Patient ambulated for 488 meters and oxygen saturation remained 94 to 97%. At the end of the study the heart rate was 105 bpm and the modified Jyoti dyspnea score was 1. The patient did not qualify for supplemental oxygen at rest or with ambulation. There are no prior studies for comparison.
--- NOTE | 2025-03-04 13:24 | P.PCNPFT_ITS ---
PFT Procedure Performed PFT Procedure Performed Spirometry with Pre/Post Bronchodilator Plethysmography (Lung Vol) Diffusing Cap (DLCO) Flow Vol Loop PFT Interpretation This is a pulmonary function test with pre and post-bronchodilator spirometry, plethysmography and diffusing capacity. The test was performed and results interpreted in accordance with the 2019 and 2005 ATS/ERS Task Force guidelines respectively using the Global Lung Function Initiative-2012 reference equations. Patient demonstrated good effort and cooperation. Reproducibility criteria were met. The quality of the pre bronchodilator spirometry maneuver was Grade A and post bronchodilator spirometry maneuver was Grade B. Findings: Spirometry: The contour the inspiratory and expiratory flow tracing are normal. The pre bronchodilator FVC is 3.20 L, 113% predicted. The pre bronchodilator FEV1 is 2.31 L, 105% predicted. The pre bronchodilator FEV1: FVC ratio 72%. The post bronchodilator FVC is 3.17 L, representing a 1% decrease. The post bronchodilator FEV1 is 2.34 L, representing 1% increase. The post bronchodilator FEV1: FVC ratio is 74%. Plethysmography: The total lung capacity is 4.61 L, 91% predicted. The functional residual capacity is 2.44 L, 84% predicted. The residual volume is 1.33 L, 60% predicted. Diffusing capacity: The diffusing capacity unadjusted for hemoglobin and carboxyhemoglobin is 12.8, 63% predicted. The diffusing capacity adjusted for alveolar volume is 3.01, 70% predicted. In comparison to previous pulmonary function testing on 05/20/2024 the post bronchodilator FVC is unchanged from 3.03 L to 3.17 L. The post bronchodilator FEV1 is unchanged from 2.15 L to 2.34 L. The total lung capacity is unchanged from 4.33 L to 4.61 L. The functional residual capacity has increased from 1.91 L to 2.44 L. The residual volume is unchanged from 1.20 L to 1.33 L. The diffusing capacity unadjusted for hemoglobin and carboxyhemoglobin is unchanged from 11.6 to 12.8. The diffusing capacity adjusted for alveolar volume is unchanged from 3.12 to 3.01. Impression: The spirometry is normal without evidence of an obstructive abnormality. There is no significant improvement after inhaling a single dose of albuterol. The total lung capacity and functional residual capacity are normal with a decreased residual volume. This is an abnormal but nonspecific lung volume pattern. The diffusing capacity unadjusted for hemoglobin and carboxyhemoglobin is mildly decreased and normalizes when adjusted for alveolar volume. In comparison to previous pulmonary function testing on 05/20/2024, there has been a greater than anticipated time dependent increase in the functional res idual capacity with no significant change in the FVC, FEV1, total lung capacity, residual volume or diffusing capacity. Clinical correlation is recommended.
== END 2025-03-04 10:09 | disposition home or self-care (01) ==
LOC: ANHPFT 10:08
PROVIDERS: PCP Family Medicine; Visit Provider Internal Medicine Critical Care Medicine
DX: J84.9 Interstitial pulmonary disease, unspecified (principal); J43.9 Emphysema, unspecified
CPT/HCPCS: 94060; 94726; 94729